=== PATIENT | male | born 1985 ===

== ENCOUNTER 2021-06-22 13:01 | Outpatient (REF) | payer SELFPAY ==
[2021-06-22 22:11] LABS: Bacteria Negative HPF (Negative); Epithelial Cells Negative HPF (Negative); RBC 0-2 HPF (0-2); WBC Negative HPF (0-5)
[2021-06-22 22:12] LABS: C & S Indicated? No; Crystals Few Calcium Oxalate HPF (Negative); Mucus Negative (Negative)
== END 2021-06-22 13:02 | disposition home or self-care (01) ==
LOC: NCHCN 13:01
PROVIDERS: Visit Provider Nurse Practitioner Community Health
DX: R10.31 Right lower quadrant pain (principal)
CPT/HCPCS: 81015